=== PATIENT | female | born 1990 | race Caucasian/White ===

== ENCOUNTER 2017-04-01 15:55 | Emergency (ER) | payer BC ==
[~2017-04-01] VITALS: Ht 165.1 cm; Wt 90.7 kg
[~2017-04-01 15:55] MED LIST: ATIVAN1 MG PO; BUPROPION HYDR150 M1 PO; BUSPAR5 MG PO; BYSTOLIC20 M1 PO; CARAFATE1 G1 PO; CLINDAMYCIN150 MG PO; DAYPRO600 M1 PO; FLAGYL500 MG PO; FLEXERIL5 MG PO; FLUOXETINE HCL40 MG PO; HYDROCODONE BIT1 T11 PO; IBU800 MG PO; LASIX40 MG PO; METOPROLOL SUC200 MG PO; NEXPLANON68 MG SC; OMEPRAZOLE20 MG PO; ORTHO TRI-CYCLE1 TA1 PO; OXYCODONE5 MG PO; PAXIL20 MG PO; PENICILLIN; PENICILLIN VK500 MG PO; PERCOCET 325 MG1 TA2 PO; PRAVACHOL40 MG PO; PROTONIX20 MG PO; PROZAC40 M1 PO; SIMVASTATIN20 MG PO; SYNTHROID0.05 MG PO; TOPROL XL50 M1 PO; TRAZODONE100 MG PO; TYLENOL WITH CO1 TA1 PO; VITAMIN D50000 I3 PO; ZOCOR5 MG PO; ZOLOFT50 MG PO
[2017-04-01] MEDS ORDERED: SYNTHROID,LEVO75 MCG PO (16:11)
[2017-04-01 16:30] LABS: BASO % 0.4 % (0.0-1.0); EOS # 0.2 10*3/uL (0.0-0.4); EOS % 1.8 % (1.0-4.0); HEMATOCRIT 37.7 % (37.0-47.0); HEMOGLOBIN 13.2 g/dl (12.0-16.0); LYMPH # 3.2 10*3/uL (1.3-4.4); LYMPH % 32.6 % (27.0-41.0); MEAN CORPUSCULAR HGB 29.4 pg (27.0-31.0); MEAN PLATELET VOLUME 8.8 fl (9.6-12.3); MONO # 0.8 10*3/uL (0.1-1.0); MONO % 8.5 % (3.0-9.0); NEUT # 5.6 10*3/uL (2.3-7.9); NEUT % 56.4 % (47.0-73.0); PLATELET COUNT AUTOMATED 398 10*3/uL (130-400); RED BLOOD COUNT 4.49 10*6/uL (4.10-5.10); RED CELL DISTRI WIDTH 11.5 % (0-14.5); WHITE BLOOD COUNT 9.9 10*3/uL (4.8-10.8)
[2017-04-01 16:39] LABS: PROTHROMBIN TIME 10.2 SECONDS (9.0-12.4)
[2017-04-01 16:50] LABS: ALKALINE PHOSPHATASE 60 U/L (45-117); BILIRUBIN, TOTAL 0.3 mg/dl (0.2-1.0); BUN 15 mg/dl (7-24); CARBON DIOXIDE 27 mmol/L (21-32); CHLORIDE 104 mmol/L (98-107); EST GLOM FILT AFRICAN AMERICAN > 60 ml/min; GLUCOSE 85 mg/dL (65-99); MAGNESIUM 2.3 mg/dL (1.5-2.1); POTASSIUM 3.9 mmol/L (3.5-5.1); SGOT/AST 17 IU/L (3-35); SGPT/ALT 38 U/L (12-78); SODIUM 138 mmol/L (136-145); TOTAL PROTEIN 7.9 gm/dL (6.4-8.2)
[2017-04-01 16:55] LABS: TROPONIN I < 0.015 ng/ml (<0.045)
[2017-04-01 17:59] LABS: FREE T4 1.44 ng/dl (0.76-1.46); THYROID STIM HORMONE (HS) 0.005 uIU/ml (0.358-4.75)
== END 2017-04-01 18:15 | disposition home or self-care (01) ==
LOC: ED 15:55
PROVIDERS: Emergency Medicine
DX: R07.89 Other chest pain (principal); F41.9 Anxiety disorder, unspecified; E66.9 Obesity, unspecified; E78.5 Hyperlipidemia, unspecified; Z87.11 Personal history of peptic ulcer disease; Z90.49 Acquired absence of other specified parts of digestive tract; Z98.890 Other specified postprocedural states; Z79.899 Other long term (current) drug therapy; Z91.030 Bee allergy status; Z88.2 Allergy status to sulfonamides; Z88.5 Allergy status to narcotic agent

== ENCOUNTER → 2018-04-14 | Outpatient (CLI) | payer BC ==
[~2018-04-14] MED LIST changes: +SYNTHROID,LEVO75 MCG PO
[2018-04-14 11:52] LABS: BASO # 0.1 10*3/uL (0.0-0.1); BASO % 0.7 % (0.0-1.0); EOS # 0.2 10*3/uL (0.0-0.4); EOS % 2.1 % (1.0-4.0); HEMATOCRIT 40.4 % (37.0-47.0); HEMOGLOBIN 13.7 g/dl (12.0-16.0); LYMPH # 3.2 10*3/uL (1.3-4.4); LYMPH % 38.6 % (27.0-41.0); MEAN CELL VOLUME 87.6 fl (81.0-99.0); MEAN CORPUSCULAR HGB 29.7 pg (27.0-31.0); MEAN CORPUSCULAR HGB CONC 33.9 g/dl (33.0-37.0); MEAN PLATELET VOLUME 9.1 fl (9.6-12.3); MONO # 0.6 10*3/uL (0.1-1.0); MONO % 7.3 % (3.0-9.0); NEUT # 4.1 10*3/uL (2.3-7.9); NEUT % 50.6 % (47.0-73.0); PLATELET COUNT AUTOMATED 347 10*3/uL (130-400); RED BLOOD COUNT 4.61 10*6/uL (4.10-5.10); RED CELL DISTRI WIDTH 12.1 % (0-14.5); WHITE BLOOD COUNT 8.2 10*3/uL (4.8-10.8)
[2018-04-14 12:17] LABS: THYROXINE (T4) TOTAL 11.9 ug/dl (4.8-13.9)
== END | disposition home or self-care (01) ==
LOC: LAB 11:23
PROVIDERS: Obstetrics & Gynecology
DX: Z01.818 Encounter for other preprocedural examination (principal)